=== PATIENT | male | born 1960 | race Caucasian/White ===

== ENCOUNTER 2023-03-11 10:55 | Day surgery (SDC) | payer OTHER ==
[~2023-03-11] VITALS: Ht 172.7 cm; Wt 76.2 kg
[2023-03-11] MEDS ORDERED: LIDOCAINE 2% 100 MG/5 ML UJET TP ONE (13:03)
[2023-03-11] MEDS ORDERED: fentaNYL citrate 0.05 MG/ML VIAL ONE (13:03)
[2023-03-11] MEDS ORDERED: MIDAZOLAM 5 MG/5 ML VIAL ONE (13:42)
[2023-03-11] MEDS ORDERED: fentaNYL citrate 0.05 MG/ML VIAL IVP ONE (14:25)
[2023-03-11] MEDS ORDERED: MIDAZOLAM 5 MG/5 ML VIAL IV ONE (14:25)
== END 2023-03-11 14:43 | disposition home or self-care (01) ==
LOC: MDS 10:55 → MMU 10:59 → MDS 14:43
PROVIDERS: ATTEND Internal Medicine Gastroenterology
DX: Z12.11 Encounter for screening for malignant neoplasm of colon (principal); K64.9 Unspecified hemorrhoids; Z88.1 Allergy status to other antibiotic agents; Z79.899 Other long term (current) drug therapy
CPT/HCPCS: 45378; J2250; J3010